=== PATIENT | female | born 1980 | race Caucasian/White ===

== ENCOUNTER 2017-02-23 12:27 | Inpatient (IN) | payer OTHER ==
[~2017-02-23] VITALS: Ht 185.4 cm; Wt 90.7 kg
[2017-02-23] MEDS ORDERED: PRENAT PO (12:50)
[2017-02-23] MEDS ORDERED: CARBOPROST 250 MCG INJ IM PRN (13:00)
[2017-02-23] MEDS ORDERED: BUTORPHANOL 2 MG INJ IV PRN (13:00)
[2017-02-23] MEDS ORDERED: OXYTOCIN 30 UNITS/LR 500 ML IV SCH ×3 (13:00→14:30)
[2017-02-23] MEDS ORDERED: OXYTOCIN 30 UNITS/LR 500 ML IV PRN (13:00)
[2017-02-23] MEDS ORDERED: LIDOCAINE 1% (MPF) 30 ML INJ INJ PRN (13:00)
[2017-02-23] MEDS ORDERED: METHYLERGONOVINE 0.2 MG INJ IM PRN (13:00)
[2017-02-23] MEDS ORDERED: MISOPROSTOL 200 MCG TAB PR PRN (13:00)
[2017-02-23] MEDS ORDERED: IBUPROFEN 600 MG TAB PO PRN (13:00)
[2017-02-23 13:02] VITALS: Ht 185.4 cm; Wt 90.7 kg
[2017-02-23 13:23] VITALS: BP 126/78; PULSE 83; RESP 18
[2017-02-23] MEDS: LACTATED RINGER'S 1,000 ML IV SCH ×3 (13:30→23:19)
[2017-02-23 13:36] LABS: ADD SCAN DIFF NO
[2017-02-23 13:38] LABS: BASOPHILS % 0.2 % (0.0-2.0); EOSINOPHILS % 0.2 % (0.0-7.0); HEMOGLOBIN 9.6 g/dl (12.0-16.0); LYMPHOCYTES # 1.8 10^3/ul (0.8-2.9); LYMPHOCYTES % 18.5 % (15.0-51.0); MEAN CORPUSCULAR HEMOGLOBIN 28.6 pg (29.0-33.0); MEAN CORPUSCULAR VOLUME 89.3 fl (82.0-101.0); MEAN PLATELET VOLUME 11.5 fl (7.4-10.4); MONOCYTE # 0.6 10^3/ul (0.3-0.9); MONOCYTES % 6.5 % (0.0-11.0); NEUTROPHIL # 7.1 10^3/ul (1.6-7.5); NEUTROPHILS % 73.4 % (39.0-77.0); PLATELET COUNT 196 10^3/UL (140-415); RED BLOOD COUNT 3.36 10^6/ul (4.20-5.40); RED CELL DISTRIBUTION WIDTH 13.5 % (11.5-14.5); WHITE BLOOD COUNT 9.6 10^3/ul (4.8-10.8)
[2017-02-23] MEDS ORDERED: LACTATED RINGER'S 1,000 ML IV PRN (13:45)
[2017-02-23 13:54] LABS: INR 0.95; PROTIME 12.7 Sec (12.2-14.2)
[2017-02-23 13:55] LABS: PARTIAL THROMBOPLASTIN TIME 23.5 Sec (25.0-35.0)
[2017-02-23] MEDS ORDERED: FENTAnyl 2MCG/ML-ROPIV 0.2% 100 ML ONE (15:02)
[2017-02-23] MEDS ORDERED: FENTAnyl 2MCG/ML-ROPIV 0.2% 100 ML BAG EPI SCH (16:00)
[2017-02-23] MEDS ORDERED: HYDROmorphONE 1 MG/ML SYG IV PRN ×2 (16:00)
[2017-02-23] MEDS ORDERED: DIPHENHYDRAMINE 50 MG INJ IV PRN (16:00)
[2017-02-23] MEDS ORDERED: ONDANSETRON 4 MG INJ IV PRN (16:00)
[2017-02-23] MEDS ORDERED: NALOXONE (0.4 MG/ML) INJ IV PRN (16:00)
[2017-02-23] MEDS ORDERED: KETOROLAC 30 MG INJ IV PRN (16:00)
--- NOTE | 2017-02-23 19:47 | HP ---
Date/Time of Note Date/Time of Note DATE: 02/23/17 TIME: 19:42 OB - History Hx of Present Free Text/Dictation 36 y.o. G3 P@ with an IUP at 37w 5d who delivered at 37 weeks with her last baby and was noted to be 6cm dilated at her visit in the office today so was sent over for delivery. She was noted to be robby q2-3 minutes. Last Menstrual Period: Jun 24, 2016 Estimated Due Date: March 11, 2017 : 3 Para: 2 Care: Good Care Ultrasounds: Normal mid trimester US Obstetrical Complications: None Medical Complications: None Past Family/Social History * Past Medical, Surgical, Family and Obstetric Histories reviewed from chart. Blood Type: O+ Rubella: immune RPR/VDRL: Negative GBS Status: Negative HBsAG: Negative OB Admission Exam Vital Signs Vital Signs Vital Signs Date Time Temp Pulse Resp B/P Pulse Ox O2 Delivery O2 Flow Rate FiO2 02/23/17 13:23 98.2 83 18 126/78 Room Air Physical Exam HEENT: WNL Heart: Rhythm Normal Lungs: Clear Abdomen: WNL Extremities: Normal Reflexes: Normal Cervical Dilatation: 6cm Effacement: 75% Station: -3 Heart Rate: 130's Accelerations: Accelerations Present Decelerations: No Decelerations Varibility: Moderate Contractions on Admission: < 5 Minutes Apart Last 72 hours Lab Results CBC & BMP 02/23/17 13:15 OB Assessment/Plan Reason for admission: active labor Plan: Expectant Management Induction Method: per Pitocin Protocol EWA VILLARREAL MD February 23, 2017 19:47
[2017-02-23] MEDS ORDERED: CITRIC ACID/NA CITRATE 30 ML CUP PO ONE (23:00)
--- NOTE | 2017-02-24 00:21 | LDN ---
Date/Time of Note Date/Time of Note DATE: 02/24/17 TIME: 00:18 Delivery Summary by OP position of a viable baby boy weighing 3600 grams or 8#15oz, 20" long and with Apgars of 9/9. Weeks of Gestation 37w 5d Placenta Delivered: Spontaneously Meconium: none Episiotomy: No Perineal laceration: 1 Laceration repair: First degree perneal lac Anesthesia type: Epidural Estimated blood loss: 200 Sponge & Needle done & correct: Yes All needle counts correct: Yes Any foreign bodies felt in the: No (vagina) Problems: Infant Delivery Information Sex Sex: male Apgars 1 Minute: 9 5 Minute: 9 Suctioning Nose & mouth suctioned at hedy: Yes Delee suction performed: No Umbilical Cord Umbilical cord with: 3 Vessels Cord presentations: no nuchal cord Cord Blood was obtained: Yes Mother & Baby Disposition Disposition Mom & Baby to Maternity; Good: Yes Baby to NICU: No EWA VILLARREAL MD February 24, 2017 00:20
[2017-02-24] MEDS ORDERED: METHYLERGONOVINE 0.2 MG INJ IM PRN (00:30)
[2017-02-24] MEDS ORDERED: OXYTOCIN 30 UNITS/LR 500 ML IV PRN (00:30)
[2017-02-24] MEDS ORDERED: CARBOPROST 250 MCG INJ IM PRN (00:30)
[2017-02-24] MEDS ORDERED: MISOPROSTOL 200 MCG TAB PR PRN (00:30)
[2017-02-24] MEDS: OXYTOCIN 30 UNITS/LR 500 ML IV SCH ×2 (00:42→04:59)
[2017-02-24 02:30] VITALS: BP 130/75; PULSE 65; RESP 18
[2017-02-24] MEDS: LACTATED RINGER'S 1,000 ML IV* SCH ×3 (02:30→16:14)
[2017-02-24 03:30] VITALS: BP 128/70; PULSE 70; RESP 18
[2017-02-24] MEDS: IBUPROFEN 600 MG TAB PO SCH ×3 (05:01→17:46)
[2017-02-24 08:27] VITALS: BP 127/75; RESP 18
[2017-02-24] MEDS: OXYCODONE/ASPIRIN (4.88/325) TAB PO PRN ×2 (08:27→16:53)
[2017-02-24 15:45] VITALS: BP 116/76; PULSE 68; RESP 18
[2017-02-24 19:35] VITALS: BP 113/72; PULSE 73; RESP 18
--- NOTE | 2017-02-24 22:51 | QN ---
Documentation Comment PPD #1 s/p Pt is in NICU with her baby. Baby had low blood sugar at delivery and some tachypnea and was transferred within an hour or 2 after delivery. Mom is weepy but otherwise is doing fine. T=99 BP 113/72 Fundus is firm Lochia minimal Ext: NT. no edema. CBC in AM P: Continue care. EWA VILLARREAL MD February 24, 2017 22:51
[2017-02-25] MEDS: IBUPROFEN 600 MG TAB PO SCH ×4 (00:36→17:33)
[2017-02-25] MEDS: OXYCODONE/ASPIRIN (4.88/325) TAB PO PRN ×3 (07:49→23:18)
[2017-02-25 08:00] VITALS: BP 128/84; PULSE 51; RESP 18
[2017-02-25 08:00] LABS: ADD SCAN DIFF NO
[2017-02-25 08:09] LABS: BASOPHIL # 0.1 10^3/ul (0.0-0.1); BASOPHILS % 0.6 % (0.0-2.0); EOSINOPHILS # 0.1 10^3/ul (0.0-0.5); EOSINOPHILS % 1.1 % (0.0-7.0); HEMATOCRIT 31.2 % (37.0-47.0); HEMOGLOBIN 9.5 g/dl (12.0-16.0); LYMPHOCYTES # 2.4 10^3/ul (0.8-2.9); LYMPHOCYTES % 29.3 % (15.0-51.0); MEAN CORPUSCULAR HEMOGLOBIN 27.9 pg (29.0-33.0); MEAN CORPUSCULAR HGB CONC 30.4 g/dl (32.0-37.0); MEAN CORPUSCULAR VOLUME 91.8 fl (82.0-101.0); MEAN PLATELET VOLUME 11.6 fl (7.4-10.4); MONOCYTE # 0.6 10^3/ul (0.3-0.9); MONOCYTES % 7.8 % (0.0-11.0); NEUTROPHIL # 4.9 10^3/ul (1.6-7.5); NEUTROPHILS % 59.3 % (39.0-77.0); PLATELET COUNT 167 10^3/UL (140-415); RED CELL DISTRIBUTION WIDTH 13.6 % (11.5-14.5); WHITE BLOOD COUNT 8.3 10^3/ul (4.8-10.8)
[2017-02-25 16:00] VITALS: BP 129/75; PULSE 69; RESP 18
[2017-02-25 20:00] VITALS: BP 128/76; PULSE 65; RESP 18
--- NOTE | 2017-02-25 22:53 | QN ---
Documentation Comment Pt delivered a few minutes before midnight so will be keeping pt until tomorrow as has not had a bowel movement yet and is weepy and depressed about the baby having to be in the NICU. Pt has been going to feed the baby q 2-3 hours. Otherwise is doing ok with normal lochia and no abdominal/pelvic pain. 98.7 BP 129/75 Fundus firm, NT, Lochia minimal. Ext NT, no edema. WBC 8.3, Hgb 9.5. P: plan d/c for tomorrow. Colace 100 BID. Spoke to the pt for a while about the status of her baby and that he should not have any correction problems so, in perspective, the baby is doing great. EWA VILLARREAL MD February 25, 2017 22:53
[2017-02-26] MEDS: IBUPROFEN 600 MG TAB PO SCH ×3 (00:06→12:16)
[2017-02-26] MEDS: DOCUSATE SODIUM 100 MG CAP PO SCH ×2 (00:07→12:16)
[2017-02-26 03:30] VITALS: BP 126/81; PULSE 60; RESP 16
[2017-02-26 08:21] VITALS: BP 136/68; PULSE 87; RESP 17
[2017-02-26] MEDS: OXYCODONE/ASPIRIN (4.88/325) TAB PO PRN (08:21)
[2017-02-26] MEDS ORDERED: DIPHTH/TET/ACEL PERTUSS (ADULT) 0.5 ML VIAL IM* ONE (09:00)
--- NOTE | 2017-02-26 14:26 | PD.PPDC ---
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
--- NOTE | 2017-02-26 14:28 | DS ---
Date/Time of Note Date/Time of Note DATE: 02/26/17 TIME: 14:27 Obstetrical Discharge Record Final Diagnosis Final Diagnosis: Term delivered Vaginal Delivery Obstetrical Delivery: Spontaneous Complications Augmentation: Yes Induction: No Condition on Discharge Physical Assessment Last Vitals: 136/68 T= 98.3 Bowel Movement: Yes Breast: Filling Fundus: Firm Calf Tenderness: No Patient Condition: Good EWA VILLARREAL MD February 26, 2017 14:28
[2017-02-27 14:08] LABS: RUBELLA ANTIBODY - IGG 1.38 index
== END 2017-02-26 15:10 | disposition home or self-care (01) | DRG 775 ==
LOC: L-D 12:27 → PP1 02-24 02:15
PROVIDERS: ADMIT Obstetrics & Gynecology; ATTEND Obstetrics & Gynecology
PROC: 10E0XZZ Delivery of Products of Conception, External Approach (ICD-10-PCS; principal; 2017-02-24)
PROC: 0HQ9XZZ Repair Perineum Skin, External Approach (ICD-10-PCS; 2017-02-24)
DX: O70.0 First degree perineal laceration during delivery (principal); Z37.0 Single live birth; Z3A.37 37 weeks gestation of pregnancy
CPT/HCPCS: 62319; 85025; 85610; 85730; 86592; 86762; 86900; 86901; 87340; 90715; J2590; J3010; J7120

== ENCOUNTER 2018-02-03 19:55 | Inpatient (IN) | END 2018-02-06 20:50 | disposition home or self-care (01) | DRG 767 ==